=== PATIENT | male | born 1990 | race Asian ===

== ENCOUNTER 2022-09-29 14:08 | Emergency (ER) | payer BC ==
[~2022-09-29] VITALS: Ht 182.9 cm; Wt 86.2 kg
[2022-09-29 14:10] VITALS: BP_SYST 131
[2022-09-29] MEDS ORDERED: PEPTAB PO (14:40)
[2022-09-29] MEDS ORDERED: IMO2 PO (14:40)
[2022-09-29 14:47] VITALS: BP_SYST 131
== END 2022-09-29 14:47 | disposition home or self-care (01) ==
LOC: SED 14:08
DX: A08.4 Viral intestinal infection, unspecified (principal); R19.7 Diarrhea, unspecified; I10 Essential (primary) hypertension; Z79.899 Other long term (current) drug therapy
CPT/HCPCS: 99282